=== PATIENT | female | born 1985 | race African-American/Black ===

== ENCOUNTER 2018-10-27 11:39 | Outpatient (CLI) | payer MEDICAID ==
--- NOTE | 2018-10-27 12:39 | Non Stress Test Report ---
Non Stress Test Datetime Report Generated by CPN: 10/27/2018 12:38 DEMOGRAPHIC EGA NST: 34.3 INDICATION Indication for Study: Ordered by Provider Indication for Study (NST) Other: repeat NST MONITORING Monitor Explained: Monitor Explained; Test Explained; Patient Verbalized Understanding Time on Monitor: 10/27/2018 11:57 Time off Monitor: 10/27/2018 12:31 NST Duration: 34 NST INTERVENTIONS NST Interventions: PO Hydration; Reposition Patient Physician Notified NST: Richard Dailey, CNM BABY A: [id number] BABY A Movement : Present Contraction Frequency : none FHR Baseline : 150 Accelerations : 15X15 Variability : Moderate 6-25bpm NST Review: Meets Criteria for Reactive NST NST Review and Verified By : Dalia Camp RNC NST Results: Reactive NST REPORT Report Trigger: Send Report
== END 2018-10-27 12:38 | disposition home or self-care (01) ==
LOC: LC 11:39
PROVIDERS: ATTEND Obstetrics & Gynecology
PROC: 4A1HXCZ Monitoring of Products of Conception, Cardiac Rate, External Approach (ICD-10-PCS; principal; 2018-10-27)
DX: Z34.93 Encounter for supervision of normal pregnancy, unspecified, third trimester (principal)
CPT/HCPCS: 59025

== ENCOUNTER 2018-12-02 06:15 | Inpatient (IN) | payer MEDICAID ==
[2018-12-02 07:01] LABS: APPEARANCE,URINE CLOUDY; BILIRUBIN,URINE NEGATIVE (NEGATIVE); COLOR,URINE YELLOW; GLUCOSE, URINE NEGATIVE (NEGATIVE); KETONES,URINE NEGATIVE (NEGATIVE); LEUKOCYTE ESTERASE,URINE NEGATIVE (NEGATIVE); NITRITE,URINE NEGATIVE (NEGATIVE); PROTEIN,URINE NEGATIVE (NEGATIVE); URINE SPECIFIC GRAVITY 1.021
[2018-12-02 07:21] LABS: URINE AMPHETAMINES SCREEN NEGATIVE; URINE BARBITURATES SCREEN NEGATIVE; URINE BENZODIAZEPINES SCREEN NEGATIVE; URINE COCAINE SCREEN NEGATIVE; URINE MARIJUANA (THC) SCREEN NEGATIVE; URINE METHADONE SCREEN NEGATIVE; URINE PHENCYCLIDINE SCREEN NEGATIVE
[2018-12-02] MEDS ORDERED: OXYTOCIN 10 UNIT/ML VIAL ONE (08:00)
[2018-12-02] MEDS ORDERED: OXYTOCIN/NORMAL SALINE 20 UNIT/1,000 ML RTUINJ ONE (08:00)
[2018-12-02] MEDS ORDERED: LIDOCAINE 1% INJ-PF (10 MG/ML) 30 ML SDV ONE (08:00)
[2018-12-02] MEDS ORDERED: MISOPROSTOL 0.2 MG TABLET ONE (08:00)
[2018-12-02] MEDS ORDERED: PENICILLIN G-K 5 MILLION UNIT VIAL ONE (08:04)
[2018-12-02 08:41] LABS: ABSOLUTE LYMPHOCYTES (AUTO) 1.4 10^3/uL (0.5-4.7); ABSOLUTE MONOCYTES (AUTO) 0.6 10^3/uL (0.1-1.4); ABSOLUTE NEUT (AUTO) 6.5 10^3/uL (1.7-8.2); BASOPHILS % (AUTO) 0.2 % (0-2); EOSINOPHILS % (AUTO) 0.3 % (0-6); HEMOGLOBIN 14.3 g/dL (12.0-15.5); LYMPHOCYTES % (AUTO) 16.8 % (13-45); MEAN CORPUSCULAR HEMOGLOBIN 32.3 pg (27.0-33.4); MEAN CORPUSCULAR HGB CONC 34.9 g/dL (32.0-36.0); MEAN CORPUSCULAR VOLUME 93 fl (80-97); MONOCYTES % (AUTO) 6.8 % (3-13); PLATELET COUNT 212 10^3/uL (150-450); RED BLOOD COUNT 4.43 10^6/uL (3.72-5.28); RED CELL DISTRIBUTION WIDTH 14.8 % (11.5-14.0); SEGMENTED NEUTROPHILS % (AUTO) 75.9 % (42-78); TOTAL CELLS COUNTED % (AUTO) 100 %; WHITE BLOOD COUNT 8.5 10^3/uL (4.0-10.5)
[2018-12-02] MEDS ORDERED: RINGERS SOLUTION,LACTATED 1,000 ML IV PRN (09:05)
[2018-12-02] MEDS ORDERED: RINGERS SOLUTION,LACTATED 300 ML IV ONE (09:05)
--- NOTE | 2018-12-02 09:06 | Admission Physical ---
Datetime Report Generated by CPN: 12/02/2018 09:06 CURRENT ADMISSION Chief Complaint: Uterine Contractions Indication for Induction: Not Applicable Admit Impression : Term, Intrauterine Admit Plan: Admit to Unit; Initiate Protocol ALLERGIES Medication Allergies: No Medication Allergies: No Known Allergies (12/02/2018) Latex: No Latex Allergies OBSTETRICAL HISTORY EDC: 12/05/2018 00:00 : 3 Para: 3 Term: 3 : 0 SAB: 0 IAB: 0 Livin Cesareans: 1 VBACs: 1 Multiple Births: 1 Gestational Diabetes: No Rh Sensitization: No Incompetent Cervix: No BONIFACIO: No Infertility: No ART Treatment: No Uterine Anomaly: No IUGR: No Hx Previous C/S: Yes Macrosomia: No Hx Loss/Stillborn: No PIH: No Hx : No Placenta Previa/Abruption: No Depression/PP Depression: No PTL/PROM: No Post Hemorrhage: No Current Procedures: Ultrasound; NST Obstetrical History Comments: 2009 40 weeks primary c/s twins - Dec 2017 40 weeks G3- current SEE RECORDS Alcohol: No Marijuana : No Cocaine: No Other Illicit Drugs: No Cigarettes: Never Smoker. 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: No Heart Disease: No Hosp/Surgery: No Autoimmune Disorder: No Anesthetic Complications: No Abnormal Pap Smear: No Neuro/Epilepsy: No Psychiatric Disorders: No Other Medical Diseases: No Hepatitis/Liver Disease: No Significant Family History: No Varicosities/Phlebitis: No Trauma/Violence : No Thyroid Dysfunction: No INFECTIOUS HISTORY Gonorrhea: No Genital Herpes: No Chlamydia: No Tuberculosis: No Syphilis: No Hepatitis: No HIV/AIDS Exposure: No Rash or Viral Illness: No HPV: Yes PHYSICAL EXAM General: Normal HEENT: Normal Neurologic: Normal Thyroid: Normal Heart: Normal Lungs: Normal Breast: Normal Back: Normal Abdomen: Normal Genitourinary Exam: Normal Extremities: Normal DTRs: Normal Pelvic Type: Adequate Vital Signs: Reviewed; Within Normal Limits VAGINAL EXAM Dilatation: 10 Effacement: 100 Station: -2 Contraction Comments: q 2 minutes MEMBRANES Membranes: Intact FETUS A EGA: 39.4 Monitoring: External US FHR- Baseline: 120s Variability: Moderate 6-25bpm Accelerations: 15X15 Decelerations: None Admit Comment: Pt desires to PLANS FOR LABOR AND DELIVERY Labor and Delivery: None Pain Management: Epidural Feeding Preference: Formula Benefit of Breast Feed Discussed: Yes Circumcision: N/A INFORMED CONSENT Signature: with User ID: [email or web address]
[2018-12-02] MEDS ORDERED: IBUPROFEN 800 MG TABLET ONE ×2 (09:07→14:00)
[2018-12-02] MEDS ORDERED: DIBUCAINE 1% OINTMENT 28 GM TP PRN (09:12)
[2018-12-02] MEDS ORDERED: ACETAMINOPHEN WITH CODEINE #3 TABLET PO PRN ×2 (09:12)
[2018-12-02] MEDS ORDERED: DIPH/PERTUSS(ACELL)/TETANUS VAC/PF 0.5 ML SYR (>=10YO) IM PRN (09:12)
[2018-12-02] MEDS ORDERED: ZOLPIDEM TARTRATE 5 MG TABLET PO PRN (09:12)
[2018-12-02] MEDS ORDERED: OXYTOCIN/NORMAL SALINE 20 UNIT/1,000 ML RTUINJ IV PRN (09:12)
[2018-12-02] MEDS ORDERED: MEASLES,MUMPS&RUBELLA VACC/PF 0.5 ML VIAL SUBCUT PRN (09:12)
[2018-12-02] MEDS ORDERED: BENZOCAINE/MENTHOL AEROSOL SPRAY 56 ML TOP PRN (09:12)
--- NOTE | 2018-12-02 09:28 | Warning Signs in Babies ---
VOD Warning Signs Datetime Report Generated by [facility]: 12/02/2018 09:28 VOD#608 -Warning Signs in Babies: Viewed with Parent(s)/Family (12/02/2018 09:28:Kevin Coates RN)
[2018-12-02] MEDS: FERROUS SULFATE 325 MG TABLET PO SCH ×2 (12:31→17:55)
[2018-12-02] MEDS: PRENATAL VITAMIN W DHA CAPSULE PO SCH (12:32)
[2018-12-02] MEDS: DOCUSATE SODIUM 100 MG CAPSULE PO SCH ×2 (12:32→17:54)
[2018-12-02] MEDS: SENNOSIDES/DOCUSATE 8.6-50 MG 1 EACH TABLET PO SCH (12:32)
[2018-12-02] MEDS: IBUPROFEN 800 MG TABLET PO SCH ×2 (14:04→22:40)
[2018-12-03] MEDS: IBUPROFEN 800 MG TABLET PO SCH ×3 (05:19→22:21)
[2018-12-03 07:33] LABS: HEMATOCRIT 36.3 % (36.0-47.0); HEMOGLOBIN 12.6 g/dL (12.0-15.5); MEAN CORPUSCULAR HEMOGLOBIN 32.5 pg (27.0-33.4); MEAN CORPUSCULAR HGB CONC 34.8 g/dL (32.0-36.0); MEAN CORPUSCULAR VOLUME 93 fl (80-97); PLATELET COUNT 217 10^3/uL (150-450); RED CELL DISTRIBUTION WIDTH 14.9 % (11.5-14.0); WHITE BLOOD COUNT 8.7 10^3/uL (4.0-10.5)
[2018-12-03] MEDS: DOCUSATE SODIUM 100 MG CAPSULE PO SCH ×2 (10:02→18:04)
[2018-12-03] MEDS: PRENATAL VITAMIN W DHA CAPSULE PO SCH (10:02)
[2018-12-03] MEDS: FERROUS SULFATE 325 MG TABLET PO SCH ×2 (10:02→18:04)
[2018-12-03] MEDS: SENNOSIDES/DOCUSATE 8.6-50 MG 1 EACH TABLET PO SCH (10:02)
--- NOTE | 2018-12-03 10:25 | PDOC PROGRESS REPORT ---
Subjective-OB Progress Note for:: 12/03/18 Subjective: reports pain controlled with current meds, bleeding slowing, denies needs Physical Exam (OB) Vital Signs: Temp Pulse Resp BP Pulse Ox 98.6 F 82 18 101/67 99 12/03/18 07:58 12/03/18 07:58 12/03/18 07:58 12/03/18 07:58 12/03/18 07:58 Intake & Output 12/02/18 12/03/18 12/04/18 06:59 06:59 06:59 Intake Total 200 Balance 200 Weight 77.8 kg - Abdomen Description: Soft Hernia Present: No Fundal Description: Firm, Midline Fundal Height: u/3 - u/4 - Abdominal Distension: No distension Tenderness: Nontender - Extremities Lower extremities: Eve's sign - neg Calf: Normal, Nontender Objective-Diagnostic Laboratory: 12/03/18 07:16 12/03/18 07:16 WBC 8.7 RBC 3.90 Hgb 12.6 Hct 36.3 MCV 93 MCH 32.5 MCHC 34.8 RDW 14.9 H Plt Count 217 Assessment and Plan(PN) - Assessment and Plan (1) Spontaneous onset of labor Is this a current diagnosis for this admission?: Yes (2) , delivered Is this a current diagnosis for this admission?: Yes - Time Spent with Patient Time with patient: Less than 15 minutes Medications reviewed and adjusted accordingly: Yes - Disposition Anticipated Discharge: Home Within: within 24 hours
[2018-12-04] MEDS: IBUPROFEN 800 MG TABLET PO SCH ×2 (05:55→13:24)
--- NOTE | 2018-12-04 09:08 | PDOC DISCHARGE SUMMARY ---
Final Diagnosis Discharge Date: 12/04/18 - Final Diagnosis (1) Spontaneous onset of labor Is this a current diagnosis for this admission?: Yes (2) , delivered Is this a current diagnosis for this admission?: Yes Discharge Data - Discharge Medication Prescriptions: Ibuprofen [Motrin 800 mg Tablet] 800 mg PO Q8HP PRN #60 tablet PRN Reason: Vits96/Iron Fum/Folic [ Tablet] 1 each PO DAILY #90 tablet Home Medications: Ibuprofen [Motrin 800 mg Tablet] 800 mg PO Q8HP PRN #60 tablet 12/04/18 Vits96/Iron Fum/Folic [ Tablet] 1 each PO DAILY #90 tablet 12/04/18 Reason(s) for Admission: Onset of Labor Procedures: NST Intrapartum Procedure(s): Spontaneous Vaginal Delivery Laceration-Degree: 1st - Diagnosis Test Laboratory: Temp Pulse Resp BP Pulse Ox 98.5 F 76 18 102/57 L 98 12/04/18 07:39 12/04/18 07:39 12/04/18 07:39 12/04/18 07:39 12/04/18 07:39 12/02/18 12/02/18 12/03/18 06:25 08: 07:16 RBC 4.43 3.90 Hgb 14.3 12.6 Hct 41.0 36.3 Urine Opiates Screen NEGATIVE - Discharge information/Instructions Discharge Activity: Balance Activity w/Rest, Pelvic Rest Discharge Diet: Regular Disposition: HOME, SELF-CARE Follow up with: [facility] in: 4, Weeks
[2018-12-04] MEDS: DOCUSATE SODIUM 100 MG CAPSULE PO SCH (10:19)
[2018-12-04] MEDS: FERROUS SULFATE 325 MG TABLET PO SCH (10:19)
[2018-12-04] MEDS: SENNOSIDES/DOCUSATE 8.6-50 MG 1 EACH TABLET PO SCH (10:19)
[2018-12-04] MEDS: PRENATAL VITAMIN W DHA CAPSULE PO SCH (10:19)
[2018-12-04 11:57] VITALS: BP 114/74
--- NOTE | 2018-12-12 10:12 | Delivery Summary ---
Del Sum A-C Datetime Report Generated by CPN: 12/12/2018 10:11 DELIVERY PERSONNEL DELIVERY PERSONNEL: [id number] Delivery Doctor:: Stephanie George MD Labor and Delivery Nurse:: Regina Galvan RNC Nursery Nurse:: Wally Becerra RNC Clinical Engineer/MEDICAID BUSINESS ANALYST: Kevin Coates RN MATERNAL INFORMATION Delivery Anesthesia: None Medications During Delivery: lidocaine for repair Medications After Delivery: Pitocin Bolus-Please Comment Estimated Blood Loss (ml): 200 ml Maternal Complications: Precipitous Labor (<3hrs) Provider Comments: / of a viable male @ 0842 with an ADIA presentation; APGARS 9, 9; superficial, midline vaginal lac (1st degree) LABOR SUMMARY EDC: 12/05/2018 00:00 No. Babies in Womb: 1 Attempted: Yes Labor Anesthesia: None LABOR INFORMATION Reason for Induction: Not Applicable Onset of Labor: 12/02/2018 02:00 Complete Dilatation: 12/02/2018 07:56 Oxytocin: N/A Group B Beta Strep: Positive Antibiotics # of Doses: 1 Antibiotics Time of Last Dose: 812 Name of Antibiotic Given: Penicillin Steroids Given: None Reason Steroids Not Administered: Not Applicable MEMBRANES Membranes Rupture Method: Artificial Rupture of Membranes: 12/02/2018 08:26 Length of Rupture (hr): 0.27 Amniotic Fluid Color: Clear Amniotic Fluid Amount: Large Amniotic Fluid Odor: Normal STAGES OF LABOR Stage 1 hr: 5 Stage 1 min: 56 Stage 2 hr: 0 Stage 2 min: 46 Stage 3 hr: 0 Stage 3 min: 6 Total Time in Labor hr: 6 Total Time in Labor min: 48 VAGINAL DELIVERY Episiotomy: None Laceration #1: Vaginal Laceration Extension #1: First Degree Other Laceration: midline vaginal Laceration Repair: Yes Laceration Repair Note: 2-0 Chromic used for repair--midline superficial vaginal Sponge Count Correct: Yes Sharps Count Correct: Yes BABY A INFORMATION Infant Delivery Date/Time: 12/02/2018 08:42 Method of Delivery: Vaginal Born in Route : No : Successful Forceps: N/A Vacuum Extraction: N/A PRESENTATION/POSITION BABY A Presentation: Cephalic Cephalic Presentation: Vertex Vertex Position: Right Occipital Anterior Breech Presentation: N/A PLACENTA INFORMATION BABY A Placenta Delivery Time : 12/02/2018 08:48 Placenta Method of Delivery: Spontaneous Placenta Status: Delivered SCORES BABY A Heart Rate 1 min: >100 bpm Resp Effort 1 min: Good Cry Reflex Irritability 1 min: Cough or Sneeze or Pulls Away Muscle Tone 1 min: Active Motion Color 1 min: Body [place], Extremities Blue SCORE 1 MIN: 9 Heart Rate 5 min: >100 bpm Resp Effort 5 min: Good Cry Reflex Irritability 5 min: Cough or Sneeze or Pulls Away Muscle Tone 5 min: Active Motion Color 5 min: Body [place], Extremities Blue Color 5 min: Body [place], Extremities Blue SCORE 5 MIN: 9 INFORMATION BABY A Gestational Age at Delivery: 39.4 Gestational Status: Full Term- 39- 40.6 Weeks Outcome : Liveborn Condition : Stable Infant Sex: Female IDENTIFICATION BABY A ID Band Number: [id number] Infant RN Verifying Infant: S. Ellie,RN and T. Jaxon,RN WEIGHT/LENGTH BABY A Birthweight (gm): 3210 Infant Weight (lb): 7 Infant Weight (oz): 1 Length (in): 20.00 Infant Length (cm): 50.80 CORD INFORMATION BABY A No. Cord Vessels: 3 Nuchal Cord : N/A Cord Blood Taken: Yes-For Storage (Mom's Blood type +) Infant Suction: Mouth; Nose; Pharynx ASSESSMENT BABY A Skin to Skin: Yes BABY B INFORMATION : N/A SIGNATURES Signature: with User ID: [email or web address]
== END 2018-12-04 13:46 | disposition home or self-care (01) | DRG 807 ==
LOC: LC 06:15 → LR 08:23 → 2S 11:10
PROVIDERS: ADMIT Obstetrics & Gynecology; ATTEND Obstetrics & Gynecology
PROC: 10E0XZZ Delivery of Products of Conception, External Approach (ICD-10-PCS; principal; 2018-12-02)
PROC: 0HQ9XZZ Repair Perineum Skin, External Approach (ICD-10-PCS; 2018-12-02)
DX: O34.211 Maternal care for low transverse scar from previous cesarean delivery (principal); Z37.0 Single live birth; O99.824 Streptococcus B carrier state complicating childbirth; O62.3 Precipitate labor; N85.8 Other specified noninflammatory disorders of uterus; O70.0 First degree perineal laceration during delivery; Z3A.39 39 weeks gestation of pregnancy
CPT/HCPCS: 36415; 80307; 81005; 85025; 85027; 86592; 86850; 86900; 86901; 90471; 90686; G0008; J2540; J2590; J3490

== ENCOUNTER 2020-03-06 20:25 | Emergency (ER) | payer BC, MEDICAID ==
--- NOTE | 2020-03-06 20:35 | ER Document Report ---
ED Medical Screen (RME) - General Stated Complaint: NECK/RIB PAIN Primary Care Provider: ROJAS RODRIGUEZ MD [Primary Care Provider] - Follow up as needed Notes: Patient is a 34-year-old -Stateless female with no significant past medical history presents to the emergency department the chief complaint of chest pain and neck pain that began earlier this evening. She states that the sharp pain that began suddenly. Reports it being located in the right chest wall and right lateral neck. States the pain is intensified with deep inspiration. Denies any injury or trauma. Denies any difficulty breathing. No history of the same. I have treated and performed a rapid initial assessment of this patient. A comprehensive ED assessment and evaluation of the patient, analysis of test results and completion of medical decision making process will be conducted by additional ED providers. PHYSICAL EXAMINATION: GENERAL: Well-appearing, well-nourished and in no acute distress. A&Ox4. Answers questions appropriately. TRAVEL OUTSIDE OF THE [place] IN LAST 30 DAYS: No - Related Data Allergies/Adverse Reactions: No Known Allergies Allergy (Verified 12/02/18 06:43) Physical Exam - Vital signs Vitals: Temp Pulse Resp BP Pulse Ox 99.0 F 103 H 13 111/66 100 03/06/20 20:03/06/20 20:03/06/20 20:03/06/20 20:03/06/20 20:29 Course - Vital Signs Vital signs: Temp Pulse Resp BP Pulse Ox 99.0 F 103 H 13 111/66 100 03/06/20 20:29 03/06/20 20:29 03/06/20 20:29 03/06/20 20:03/06/20 20:29 Doctor's Discharge - Discharge Referrals: ROJAS RODRIGUEZ MD [Primary Care Provider] - Follow up as needed
[2020-03-06 21:09] LABS: ABSOLUTE EOSINOPHILS # (AUTO) 0.1 10^3/uL (0.0-0.6); ABSOLUTE LYMPHOCYTES (AUTO) 1.5 10^3/uL (0.5-4.7); ABSOLUTE MONOCYTES (AUTO) 0.6 10^3/uL (0.1-1.4); ABSOLUTE NEUT (AUTO) 6.9 10^3/uL (1.7-8.2); BASOPHILS % (AUTO) 0.1 % (0-2); EOSINOPHILS % (AUTO) 1.1 % (0-6); HEMATOCRIT 36.1 % (36.0-47.0); HEMOGLOBIN 12.3 g/dL (12.0-15.5); LYMPHOCYTES % (AUTO) 16.6 % (13-45); MEAN CORPUSCULAR HEMOGLOBIN 31.7 pg (27.0-33.4); MEAN CORPUSCULAR HGB CONC 34.1 g/dL (32.0-36.0); MEAN CORPUSCULAR VOLUME 93 fl (80-97); MONOCYTES % (AUTO) 6.6 % (3-13); PLATELET COUNT 279 10^3/uL (150-450); RED BLOOD COUNT 3.88 10^6/uL (3.72-5.28); RED CELL DISTRIBUTION WIDTH 13.9 % (11.5-14.0); SEGMENTED NEUTROPHILS % (AUTO) 75.6 % (42-78); TOTAL CELLS COUNTED % (AUTO) 100 %; WHITE BLOOD COUNT 9.2 10^3/uL (4.0-10.5)
[2020-03-06 21:28] LABS: ALBUMIN 4.2 g/dL (3.5-5.0); ALKALINE PHOSPHATASE 46 U/L (38-126); ANION GAP 6 (5-19); ASPARTATE AMINO TRANSFERASE 58 U/L (14-36); BILIRUBIN,TOTAL 0.5 mg/dL (0.2-1.3); BLOOD UREA NITROGEN 10 mg/dL (7-20); CALCIUM 9.3 mg/dL (8.4-10.2); CARBON DIOXIDE 27 mmol/L (22-30); CHLORIDE 104 mmol/L (98-107); GLUCOSE 94 mg/dL (75-110); POTASSIUM 3.8 mmol/L (3.6-5.0); TOTAL PROTEIN 7.8 g/dL (6.3-8.2)
--- NOTE | 2020-03-06 21:30 | RADIOLOGY REPORT (SQ) ---
EXAM DESCRIPTION: XR CHEST 2 VIEWS COMPLETED DATE/TME: 03/06/2020 20:34 CLINICAL HISTORY: chest pain COMPARISON: None FINDINGS: Cardiac silhouette is within normal limits. There is no focal parenchymal or pleural disease. There is no acute osseous process visualized. There is scoliosis of the thoracolumbar spine. IMPRESSION: No evidence of acute cardiopulmonary disease.
--- NOTE | 2020-03-07 00:37 | ER Document Report ---
ED General - General Chief Complaint: Rib Pain Stated Complaint: NECK/RIB PAIN Time Seen by Provider: 03/07/20 00:33 Primary Care Provider: ROJAS RODRIGUEZ MD [ACTIVE STAFF] - Follow up as needed Notes: Patient is a 34-year-old female that comes emergency department for chief complaint of pain along the right side of her chest and up into the right side of her neck. She states she cannot get comfortable, and she also has pain when she takes a deep breath. Symptoms started in the afternoon at work and have progressed until tonight and this morning. She denies numbness, weakness, difficulty breathing, trauma, fever/chills, nausea/vomiting, abdominal pain. She denies body aches, sore throat, or any sick contacts. She denies history of the same. She denies smoking, recreational drugs, alcohol, or any daily medications including control. She denies any surgeries or diagnosed medical history. She denies any known family history including cardiac disease, blood clot. TRAVEL OUTSIDE OF THE [place] IN LAST 30 DAYS: No - Related Data Allergies/Adverse Reactions: No Known Allergies Allergy (Verified 12/02/18 06:43) Past Medical History - General Information source: Patient - Social History Smoking Status: Never Smoker Frequency of alcohol use: None Drug Abuse: None Lives with: Family Family History: Reviewed & Not Pertinent Patient has suicidal ideation: No Patient has homicidal ideation: No - Medical History Medical History: Negative Surgical Hx: Negative - Immunizations Immunizations up to date: Yes Hx Diphtheria, Pertussis, Tetanus Vaccination: Yes Review of Systems - Review of Systems Constitutional: No symptoms reported EENT: No symptoms reported Cardiovascular: See HPI Respiratory: See HPI Gastrointestinal: No symptoms reported Genitourinary: No symptoms reported Female Genitourinary: No symptoms reported Musculoskeletal: See HPI Skin: No symptoms reported Hematologic/Lymphatic: No symptoms reported Neurological/Psychological: No symptoms reported Physical Exam - Vital signs Vitals: Temp Pulse Resp BP Pulse Ox 99.0 F 103 H 13 111/66 100 03/06/20 20:29 03/06/20 20:29 03/06/20 20:29 03/06/20 20:29 03/06/20 20:29 - Notes Notes: GENERAL: Alert, interacts well. Patient will suddenly start appearing uncomfortable and shift her weight appearing to try to resolve this HEAD: Normocephalic, atraumatic. EYES: Pupils equal, round, and reactive to light. Extraocular movements intact. ENT: Oral mucosa moist, tongue midline. Oropharynx unremarkable. Airway patent. Nares patent, sinuses non-tender NECK: Full range of motion. Supple. Trachea midline. No lymphadenopathy. No nu chal rigidity. LUNGS: Clear to auscultation bilaterally, no wheezes, rales, or rhonchi. No respiratory distress. Non-tender chest wall. Patient does appear to have some discomfort with deep breaths. HEART: Mildly tachycardic, normal rhythm, no murmur ABDOMEN: Soft, non-tender. Non-distended. EXTREMITIES: Moves all 4 extremities spontaneously. No edema, normal radial and dorsalis pedis pulses bilaterally. No cyanosis. BACK: no cervical, thoracic, lumbar midline tenderness. No saddle anesthesia, normal distal neurovascular exam. Moves all extremities in full range of motion. NEUROLOGICAL: Alert and oriented x3. Normal speech. Cranial nerves II through XII grossly intact. Strength 5/5 in all extremities. PSYCH: Normal affect, normal mood. SKIN: Very slight diaphoresis noted on the forehead, otherwise unremarkable Course - Re-evaluation Re-evalutation: Patient was given oral pain and nausea medication. Afterwards symptoms resolved. Patient did not have any palpable tenderness or pain with range of motion except for when she takes deep breaths she had sharp pain over the right side of the chest. Borderline EKG, negative troponin. CBC, chemistry unremarkable. Chest x-ray unremarkable. is negative. Because of patient's pleuritic pain, borderline tachycardia, borderline EKG d-dimer was performed and is actually positive. I had discussed with patient before performing this. As result CTA was performed, fortunately this was negative. Overall based on her pleuritic pain, lack of pain on palpation, and negative work-up I suspect this is pleurisy or similar diagnosis. Either way I suspect this will resolve with time, low suspicion of acute intrathoracic etiology. I did discuss how this could be viral and even discussed of coronavirus testing but after discussion this was deferred because patient has not had a fever, sore throat, cough, body aches, or any other symptoms suggesting viral illness. Discussed all details with patient at length, discussed expectations, follow-up, return precautions. Patient requests work release. Patient states understanding and agreement with plan. Stable at time of discharge. - Vital Signs Vital signs: Temp Pulse Resp BP Pulse Ox 99.1 F 97 18 127/76 H 100 03/07/20 00:41 03/07/20 00:40 03/07/20 00:40 03/07/20 00:40 03/07/20 00:40 - Laboratory Result Diagrams: 03/06/20 20:44 03/06/20 20:44 Laboratory results interpreted by me: 03/06/20 03/06/20 20:44 20:44 D-Dimer 0.78 H Sodium 136.9 L Creatinine 0.50 L AST 58 H ALT 52 H - EKG Interpretation by Me Additional EKG results interpreted by me: EKG shows sinus tachycardia at a rate of 115, QTc 448, OR interval of 136. Normal axis. There is inverted T wave in lead III but there are no T wave inversions or ST segment changes in consecutive leads. Borderline S1Q3T3 pattern. Discharge - Discharge Clinical Impression: Right-sided chest pain, Neck pain, Pleuritic chest pain Condition: Stable Disposition: HOME, SELF-CARE Instructions: Oral Narcotic Medication ([facility]) Additional Instructions: Based on your evaluation, symptoms, work-up, and suspect this is pleurisy. The CAT scan of your chest is negative. Your remaining work-up is reassuring. This could be viral, this could be from your own immune system, or this could be from an uncertain cause. You have been treated for the inflammation of the lining of your long, this should simply resolve with time. You can take [id number] anti-inflammatories, Tylenol, Excedrin. Drink plenty of fluids and rest. Only take the provided pain medication if needed especially to help you sleep. Follow-up with primary care. Return if you worsen including passing out, severe worsening pain, difficulty breathing, spiking fevers, or any other concerning or worsening symptoms. Forms: Return to Work Referrals: ROJAS RODRIGUEZ MD [ACTIVE STAFF] - Follow up as needed
[2020-03-07] MEDS ORDERED: PROMETHAZINE HCL 25 MG TABLET PO ONE (00:44)
[2020-03-07] MEDS ORDERED: OXYCODONE-ACETAMINOPHEN 5-325 MG TABLET PO ONE (00:44)
--- NOTE | 2020-03-07 02:29 | RADIOLOGY REPORT (SQ) ---
EXAM DESCRIPTION: CT CHEST ANGIOGRAPHY WITHOUT THEN WITH IV CONTRAST COMPLETED DATE/TME: 03/07/2020 01:03 CLINICAL HISTORY: 34 years, Female, tachycardia, pleuritic chest pain,+D-Dimer(0.78) COMPARISON: None. TECHNIQUE: 539 Images stored on PACS. All CT scanners at this facility use dose modulation, iterative reconstruction, and/or weight based dosing when appropriate to reduce radiation dose to as low as reasonably achievable (ALARA). Axial CTA images with coronal and sagittal MIPS [facility]: Dose Right [facility]: CareDose [facility]: Dose Right [facility]: Teradose 4D [facility]: [employer] LIMITATIONS: None. FINDINGS: The mediastinal vasculature enhances normally. No filling defect to suggest pulmonary embolus. Negative for thoracic aortic aneurysm or dissection. Calcified mediastinal and hilar lymph nodes. Limited evaluation of the upper abdomen is unremarkable. Heart and pericardium are unremarkable. Osseous structures are grossly intact. No pneumothorax. Airways are patent. Minor scarring in each lung base. Lungs are otherwise clear IMPRESSION: No acute intrathoracic process TECHNICAL DOCUMENTATION: Quality ID # [id number]: Final reports with documentation of one or more dose reduction techniques (e.g., Automated exposure control, adjustment of the mA and/or kV according to patient size, use of iterative reconstruction technique) copyright 2011 [employer]- All Rights Reserved
[2020-03-07] MEDS ORDERED: HYDROCODONE/ACETAMINOPHEN 5-325 MG (6 TAB/ER DISP) PO PRN (02:37)
[2020-03-07] MEDS ORDERED: DEXAMETHASONE SOD PHOS INJ 10 MG/1 ML VIAL IV ONE (02:37)
[2020-03-07 04:17] VITALS: BP 111/66
--- NOTE | 2020-03-07 07:18 | EKG REPORT ---
SEVERITY:- ABNORMAL ECG - SINUS TACHYCARDIA PROBABLE LEFT ATRIAL ABNORMALITY NONSPECIFIC T ABNORMALITIES, INFERIOR LEADS : Confirmed by: Yannick Ashby MD 07-Mar-2020 07:17:01
== END 2020-03-07 04:18 | disposition home or self-care (01) ==
LOC: ER 20:25
DX: M54.2 Cervicalgia (principal); R07.81 Pleurodynia; R07.89 Other chest pain
CPT/HCPCS: 93005; 99284; 96374; 36415; 84703; 85025; 80053; 84484; 85379; 71046; 71275; 93010; J1100

== ENCOUNTER 2020-09-20 17:29 | Emergency (ER) | payer BC ==
--- NOTE | 2020-09-20 17:56 | ER Document Report ---
ED Hand/Wrist Injury - General Chief Complaint: Hand Pain Stated Complaint: HAND PAIN Time Seen by Provider: 09/20/20 17:48 Primary Care Provider: HOPE YODER DO [ACTIVE STAFF] - Follow up as needed Mode of Arrival: Ambulatory Information source: Patient Notes: 34-year-old female presents to ED for complaint of right hand pain at the base of the fourth finger. She states she hit her hand on something at work about a month ago and is been hurting intermittently since then. She states she has not had her hand x-rayed since she injured her hand and the pain continues. I did offer her Tylenol or Motrin right now she states she would rather wait till after the x-ray results. Patient is alert oriented respirations regular nonlabored speaking in full sentences. It is tender at the hand just below the fourth finger. REVIEW OF SYSTEMS: CONSTITUTIONAL : Denies fever, chills, or sweats. Denies recent illness. EENT: Denies eye, ear, throat, or mouth pain or symptoms. Denies nasal or sinus congestion. CARDIOVASCULAR: Denies chest pain. RESPIRATORY: Denies cough, cold, or chest congestion. Denies shortness of breath, difficulty breathing, or wheezing. GASTROINTESTINAL: Denies abdominal pain. Denies nausea, vomiting, or diarrhea. Denies constipation. Last BM: GENITOURINARY: Denies difficulty urinating, painful urination, burning, freq uency, or blood in urine. FEMALE GENITOURINARY: Denies vaginal bleeding, abnormal or irregular periods. LMP: August 25, 2020 MUSCULOSKELETAL: Tenderness just below the fourth finger on the right hand. SKIN: Denies rash or skin lesions. HEMATOLOGIC : Denies easy bruising or bleeding. LYMPHATIC: Denies swollen, enlarged glands. NEUROLOGICAL: Denies altered mental status or loss of consciousness. Denies headache. Denies weakness or paralysis or loss of use of either side. Denies problems with gait or speech. Denies sensory or motor loss. PSYCHIATRIC: Denies anxiety or stress or depression. ALL OTHER SYSTEMS REVIEWED AND NEGATIVE. VITAL SIGNS: Within normal limits. GENERAL: No acute distress, non-toxic appearance. HEAD: Normal with no signs of head trauma. EYES: PERRLA, EOMI, conjunctiva normal, no discharge. EARS: Hearing grossly intact. NOSE: Normal. THROAT: Oropharynx is normal. NECK: Normal range of motion, no tenderness, supple, no lymphadenopathy, No adenopathy, no JVD. CHEST: Clear breath sounds bilaterally. No wheezes, rales, or rhonchi. CARDIAC: Regular rate and rhythm. S1 and S2, without murmurs, gallops, or rubs. VASCULAR: No Edema. Peripheral pulses normal and equal in all extremities. ABDOMEN: Normal and soft with no tenderness, no masses or pulsatile masses. GASTROINTESTINAL: Bowel sounds normal GENITOURINARY: Normal, No tenderness LYMPATHTIC: No lymphadenopathy noted. MUSCULOSKELETAL: Good range of motion of all major joints. Extremities without clubbing, cyanosis or edema. Pain tenderness to the right hand just at the base of the fourth finger. There is a knot noted at that area. NEUROLOGICAL: Alert and oriented x 3. No focal sensory or strength deficits. Speech normal. Follows commands appropriately. PSYCHIATRIC: Normal Affect, judgement and mood. SKIN: Normal appearance with no rashes or lesions. TRAVEL OUTSIDE OF THE [place] 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 Lives with: Family Family History: Reviewed & Not Pertinent Patient has suicidal ideation: No Patient has homicidal ideation: No - Past Medical History Cardiac Medical History: Reports: None Pulmonary Medical History: Reports: None EENT Medical History: Reports: None Neurological Medical History: Reports: None Endocrine Medical History: Reports: None Renal/ Medical History: Reports: None Malignancy Medical History: Reports: None GI Medical History: Reports: None Musculoskeletal Medical History: Reports None Skin Medical History: Reports None Psychiatric Medical History: Reports: None Traumatic Medical History: Reports: None Infectious Medical History: Reports: None Past Surgical History: Reports: Hx Section - Immunizations Immunizations up to date: Yes Hx Diphtheria, Pertussis, Tetanus Vaccination: Yes - 2019 Physical Exam - Vital signs Vitals: Temp Pulse Resp BP Pulse Ox 97.9 F 83 18 110/59 L 100 09/20/20 17:34 09/20/20 17:34 09/20/20 17:34 09/20/20 17:34 09/20/20 17:34 Course - Vital Signs Vital signs: Temp Pulse Resp BP Pulse Ox 98.2 F 85 18 104/61 99 09/20/20 19:24 09/20/20 19:13 09/20/20 19:13 09/20/20 19:13 09/20/20 19:13 - Diagnostic Test Radiology reviewed: Image reviewed, Reports reviewed Discharge - Discharge Clinical Impression: painful knot right hand Condition: Stable Disposition: HOME, SELF-CARE Additional Instructions: You were seen today for painful knot to the palmar side of your right hand just below the fourth finger. When you have written report of your x-ray. That does not show show any bony abnormalities. Sometimes we have was called sesamoid bones which are extra calcium growths in her hands. There are in other joints as well. I have given you the name and number of an retail loss prevention specialist to follow-up with to see if there is anything you need to do further for this painful knot. Ibuprofen Ibuprofen is an excellent, safe drug for pain control. In addition, it has potent antiinflammatory effects which are beneficial, especially in the treatment of injuries, arthritis, or tendonitis. It's best to take ibuprofen with food. Persons with ulcer disease or allergy to aspirin should notify their physician of this before taking ibuprofen. Take the medication exactly as prescribed. Don't take additional doses unless instructed to do so by your doctor. If you develop wheezing, shortness of breath, hives, faintness, stomach pain, vomiting, or dark black stools, return for re-evaluation at once. Ice & Elevation Apply ice packs frequently against the painful area. Many different schedules are recommended, such as "20 minutes on, 20 minutes off" or "one hour ice, two hours rest." If you need to work, you may need to go longer between ice treatments. You should plan to have the area ice packed AT LEAST one-fourth of the time. The ice should be applied over the wrap, tape, or splint, or over a layer of cloth -- not directly against the skin. Some ice bags have a built-in cloth and can be put directly on the skin. Your injured part should be elevated as much as possible over the next 48 hours. Try to keep the injury above the level of the heart. Avoid use of the injured area. Elevation and rest will decrease the swelling. FOLLOW-UP CARE: If you have been referred to a physician for follow-up care, call the physicians office for an appointment as you were instructed or within the next two days. If you experience worsening or a significant change in your symptoms, notify the physician immediately or return to the Emergency Department at any time for re-evaluation. Referrals: HOPE YODER, [ACTIVE STAFF] - Follow up as needed
--- NOTE | 2020-09-20 18:13 | RADIOLOGY REPORT (SQ) ---
EXAM DESCRIPTION: HAND RIGHT 3 VIEWS IMAGES COMPLETED DATE/TIME: 09/20/2020 6:04 pm REASON FOR STUDY: Pain for about a month COMPARISON: None. EXAM PARAMETERS: NUMBER OF VIEWS: Three views. TECHNIQUE: AP, lateral and oblique radiographic images acquired of the right hand. LIMITATIONS: None. FINDINGS: MINERALIZATION: Normal. BONES: No acute fracture or dislocation. No worrisome bone lesions. JOINTS: No effusions. SOFT TISSUES: No soft tissue swelling. No foreign body. OTHER: No other significant finding. IMPRESSION: NEGATIVE STUDY OF THE RIGHT HAND. NO RADIOGRAPHIC EVIDENCE OF ACUTE INJURY. TECHNICAL DOCUMENTATION: JOB ID: [id number] 2010 [employer]- All Rights Reserved Reading location - IP/workstation name: [email or web address]
[2020-09-20 19:24] VITALS: BP 104/61
== END 2020-09-20 19:24 | disposition home or self-care (01) ==
LOC: ER 17:29
DX: R22.31 Localized swelling, mass and lump, right upper limb (principal); M79.641 Pain in right hand
CPT/HCPCS: 99283